=== PATIENT | male | born 1970 ===

== ENCOUNTER → 2021-05-18 | Outpatient (RCR) | payer BC | LOC: PT 09:49 | PROVIDERS: ATTEND Neurological Surgery | DX: M51.16 Intervertebral disc disorders with radiculopathy, lumbar region (principal) ==

== ENCOUNTER 2021-06-12 14:00 | Outpatient (RCR) | payer BC | END 2021-06-18 | LOC: PT 14:00 | PROVIDERS: ATTEND Neurological Surgery | DX: M54.16 Radiculopathy, lumbar region (principal); M62.81 Muscle weakness (generalized); R26.2 Difficulty in walking, not elsewhere classified ==

== ENCOUNTER 2021-07-10 15:00 | Outpatient (RCR) | payer BC | END 2021-07-16 | LOC: PT 15:00 | PROVIDERS: ATTEND Neurological Surgery | DX: M51.16 Intervertebral disc disorders with radiculopathy, lumbar region (principal); M62.81 Muscle weakness (generalized); M54.50 Low back pain, unspecified; R26.2 Difficulty in walking, not elsewhere classified | CPT/HCPCS: 97139 ==

== ENCOUNTER 2021-07-31 13:00 | Outpatient (RCR) | payer BC | END 2021-08-16 | LOC: PT 13:00 | PROVIDERS: ATTEND Neurological Surgery | DX: M51.16 Intervertebral disc disorders with radiculopathy, lumbar region (principal); M62.81 Muscle weakness (generalized); M54.50 Low back pain, unspecified; R26.2 Difficulty in walking, not elsewhere classified | CPT/HCPCS: 97139 ==

== ENCOUNTER 2021-08-29 16:00 | Outpatient (RCR) | payer BC | END 2021-09-15 | LOC: PT 16:00 | PROVIDERS: ATTEND Neurological Surgery | DX: M51.16 Intervertebral disc disorders with radiculopathy, lumbar region (principal); M62.81 Muscle weakness (generalized); M54.50 Low back pain, unspecified; R26.2 Difficulty in walking, not elsewhere classified | CPT/HCPCS: 97139 ==

== ENCOUNTER 2021-09-27 14:00 | Outpatient (RCR) | payer BC | END 2021-10-16 | LOC: PT 14:00 | PROVIDERS: ATTEND Neurological Surgery | DX: M51.86 Other intervertebral disc disorders, lumbar region (principal) ==